=== PATIENT | male | born 1980 | race African-American/Black ===

== ENCOUNTER → 2016-12-19 | Outpatient (CLI) | payer OTHER ==
--- NOTE | 2016-12-19 12:01 | DIAGNOSTIC IMAGING REPORT ---
(BARIUM SWALLOW) ESOPHAGUS CLINICAL HISTORY: Dysphagia. COMPARISON STUDY: None FLUOROSCOPY TIME: 1.1 minutes. FINDINGS: Esophageal motility was normal. No esophageal mass or stricture was identified. A 13 mm barium tablet passed into the stomach. No reflux was elicited. The gastroesophageal junction was normal. IMPRESSION: Normal barium swallow. Electronically signed by: Galileo Sy M.D. 12/19/2016 11:59 AM Dictated Date/Time: 12/19/2016 11:37 AM
== END | disposition home or self-care (01) ==
LOC: C.RAD 10:52
PROVIDERS: ATTEND Family Medicine
DX: R13.10 Dysphagia, unspecified (principal)